=== PATIENT | female | born 1980 | race Caucasian/White ===

== ENCOUNTER 2023-04-03 05:56 | Day surgery (SDC) | payer OTHER ==
[2023-04-03] MEDS ORDERED: Lactated Ringers 1,000 ML IV SCH (06:30)
[2023-04-03 06:47] VITALS: O2SAT 97
[2023-04-03 07:36] LABS: Absolute Neutrophil Ct (ANC) 8.02 x10^3/uL (1.4-6.9); BASOPHIL % 0.7 % (0.0-0.4); Basophil (Absolute #) 0.09 x10^3/uL (0-0.4); Eosinophil % 9.8 % (0.00-5.0); Eosinophil (Absolute #) 1.24 x10^3/uL (0-0.5); Hematocrit 43.8 % (35-47); IMMATURE GRAN # 0.06 x10^3u/L (0.00-0.03); IMMATURE GRAN % 0.5 % (0.00-0.4); Lymphocyte (Absolute #) 2.61 x10^3/uL (1.0-4.6); Lymphocytes % 20.6 % (24.0-44.0); Mean Cell Volume 89.4 fL (78-100); Mean Corpuscular Hemoglobin 30.6 pg (26-32); Mean Corpuscular Hgb Concent. 34.2 g/dL (32-36); Mean Platelet Volume 9.8 fL (7.5-11.0); Monocyte (Absolute #) 0.65 x10^3/uL (0.0-1.3); Monocytes % 5.1 % (0.0-12.0); Neutrophil % 63.3 % (36.0-66.0); Platelet Count 288 x10^3/uL (150-450); White Blood Count 12.7 x10^3/uL (4.0-10.5)
[2023-04-03 08:03] LABS: ALBUMIN 4.2 g/dL (3.5-5.0); ALKALINE PHOSPHATASE 99 U/L (38-126); ANION GAP 15.6 MEQ/L (5-15); BLOOD UREA NITROGEN 14 mg/dL (7-17); CHLORIDE 104 mmol/L (98-107); Calcium 9.1 mg/dL (8.4-10.2); Carbon Dioxide 19 mmol/L (22-30); Creatinine 1 0.96 mg/dL (0.52-1.04); EST GLOMERULAR FILTRATION RATE 76.7 ML/MIN; Glucose 102 mg/dL (74-106); HCG, Quantitative (Inhouse) < 2.39 mIU/ml; MAGNESIUM 2.3 mg/dL (1.6-2.3); Potassium 3.4 mmol/L (3.5-5.1); SGOT/AST 21 U/L (14-36); SGPT/ALT 20 U/L (0-35); SODIUM 135 mmol/L (137-145); Total Protein 7.4 g/dL (6.3-8.2)
[2023-04-03] MEDS ORDERED: Xylocaine-Mpf 2% 5 Ml Vial ONE (08:13)
[2023-04-03] MEDS ORDERED: DIPRIVAN 200 MG/20 ML IV ONE ×2 (08:13→08:14)
[2023-04-03] MEDS ORDERED: Versed 2 MG/2 ML Injection ONE (08:14)
[2023-04-03 10:15] VITALS: TEMP 97.9
[2023-04-03 10:19] VITALS: BP 126/78; PULSE 77; RESP 18
--- NOTE | 2023-04-03 10:43 | OP ---
SURGERY DATE/TIME: 04/03/2023 0854 PREOPERATIVE DIAGNOSES: 1) History of colon polyps. 2) Family history of colon cancer. POSTOPERATIVE DIAGNOSIS: Three distal sigmoid polyps. PROCEDURE: Colonoscopy. SURGEON: Yves Hough M.D. ANESTHESIA: MAC by Billy Paul CRNA. ESTIMATED BLOOD LOSS: Minimal. SPECIMENS: Three hot forceps polypectomies from the distal sigmoid colon. DESCRIPTION OF PROCEDURE: After informed written consent was obtained, the patient was taken to the endoscopy suite. She was placed in left lateral decubitus position and anesthesia was titrated to desired level of consciousness. Digital rectal exam showed external hemorrhoids and no internal lesions. Normal sphincter tone. The scope was inserted into the rectum and sequentially the entire colonic mucosa was traversed. The level of cecum was reached and verified with direct visualization of the ileocecal valve. Prep was noted to be good. There were three sessile polyps in the distal sigmoid colon they were all grasped with forceps, cauterized and removed in its entirety. They were all in close proximity and were sent in one specimen container. None of them were large or suspicious. Prior to withdrawal retroflexion showed no internal lesions. The scope was removed. The patient was transferred to the recovery room in good condition. She will follow up in a week for pathology results.
== END 2023-04-03 10:26 | disposition home or self-care (01) ==
LOC: SDC 05:56
PROVIDERS: ATTEND Family Medicine
DX: Z09 Encounter for follow-up examination after completed treatment for conditions other than malignant neoplasm (principal); Z86.010 Personal history of colon polyps; Z80.0 Family history of malignant neoplasm of digestive organs; K63.5 Polyp of colon; K64.4 Residual hemorrhoidal skin tags
CPT/HCPCS: 80053; 83735; 84702; 85025; J2250; J2704

== ENCOUNTER 2023-04-09 07:11 | Observation (INO) | payer OTHER ==
[2023-04-09] MEDS ORDERED: CEFAZOLIN 2 GM-D5W BAG** 2 GM/50 ML ML IV SCH ×2 (07:30→14:00)
[2023-04-09] MEDS ORDERED: Lactated Ringers 1,000 ML IV SCH (07:30)
[2023-04-09 07:32] LABS: HCG URINE TEST NEGATIVE (NEGATIVE)
[2023-04-09 07:43] LABS: Hematocrit 44.2 % (35-47); Hemoglobin 14.7 g/dL (12.0-16.0); Mean Cell Volume 89.8 fL (78-100); Mean Corpuscular Hemoglobin 29.9 pg (26-32); Mean Corpuscular Hgb Concent. 33.3 g/dL (32-36); Mean Platelet Volume 9.9 fL (7.5-11.0); Platelet Count 295 x10^3/uL (150-450); Red Blood Count 4.92 x10^6/uL (4.1-5.4); Red Cell Distribution Width 12.9 % (11.5-14.0); White Blood Count 11.7 x10^3/uL (4.0-10.5)
[2023-04-09 08:01] LABS: ALBUMIN 4.1 g/dL (3.5-5.0); ANION GAP 11.2 MEQ/L (5-15); BILIRUBIN,TOTAL 0.8 mg/dL (0.2-1.3); Calcium 8.7 mg/dL (8.4-10.2); Creatinine 1 0.66 mg/dL (0.52-1.04); EST GLOMERULAR FILTRATION RATE 113.7 ML/MIN; Potassium 3.4 mmol/L (3.5-5.1); Total Protein 7.3 g/dL (6.3-8.2)
[2023-04-09] MEDS ORDERED: Transderm Scop 1.5MG Patch TOP PRN (08:06)
[2023-04-09] MEDS ORDERED: Transderm Scop 1.5MG Patch ONE (08:10)
[2023-04-09 08:27] LABS: ABO TYPING A; Antibody Screen NEGATIVE (NEGATIVE); RH TYPING POSITIVE
[2023-04-09] MEDS ORDERED: OFIRMEV 100 ML IV ONE (08:47)
[2023-04-09] MEDS ORDERED: Magnesium Sulfate 1 GM/2 ML VIAL ONE (08:47)
[2023-04-09] MEDS ORDERED: Xylocaine-Mpf 2% 5 Ml Vial ONE (08:49)
[2023-04-09] MEDS ORDERED: TORAdol 30 mg Injection ONE (08:49)
[2023-04-09] MEDS ORDERED: Zemuron 100 MG/10 ML ONE ×2 (08:49→09:55)
[2023-04-09] MEDS ORDERED: Decadron 4 MG INJ ONE ×2 (08:49→10:17)
[2023-04-09] MEDS ORDERED: Zofran 4 MG/2 ML VIAL ONE (08:49)
[2023-04-09] MEDS ORDERED: BRIDION 200MG/2ML IV ONE (08:49)
[2023-04-09] MEDS ORDERED: SUBLIMAZE 100 MCG/2 ML ONE ×3 (08:50→11:20)
[2023-04-09] MEDS ORDERED: DIPRIVAN 200 MG/20 ML IV ONE ×5 (08:50→10:07)
[2023-04-09] MEDS ORDERED: Versed 2 MG/2 ML Injection ONE (08:57)
[2023-04-09] MEDS ORDERED: DEXMEDETOMIDINE 80 MCG/20ML-NS IV ONE (09:09)
[2023-04-09] MEDS ORDERED: Naropin 0.5% 30 ML VIAL ONE (10:17)
[2023-04-09] MEDS ORDERED: Hydromorphone 1 mg/ml Injection ONE (10:53)
[2023-04-09 11:17] LABS: Appearance Clear (Clear); Bacteria None Seen /HPF (None Seen); Bilirubin Negative (Negative); Blood Negative (Negative); Epithelial Cells None Seen /HPF (None Seen); Glucose, Urine Negative (Negative); Hyaline Casts NONE SEEN /LPF (0-2); Ketones Negative (Negative); Leukocyte Esterase Negative (Negative); Nitrite Negative (Negative); Ph 7.5 (4.6-8.0); Protein,Urine Dip Negative (Negative); RBC 0-2 /HPF (0-5); Urobilinogen 0.2 mg/dL (0.2); WBC 0-2 /HPF (0-5)
[2023-04-09] MEDS ORDERED: MORPHINE SULFATE 10 MG/ML ONE (11:38)
[2023-04-09] MEDS ORDERED: HYDROMORPHONE 30 MG/30 ML-NS PCA IV PRN (13:05)
[2023-04-09] MEDS ORDERED: Zofran 4 MG/2 ML VIAL IV PRN (13:07)
[2023-04-09] MEDS ORDERED: TORAdol 30 mg Injection IV PRN (13:08)
[2023-04-09] MEDS ORDERED: NORCO 7.5/325 MG TAB PO PRN (13:15)
[2023-04-09] MEDS ORDERED: NON-FORMULARY ITEM (Tirzepatide [Mounjaro] 5 MG/0.5 ML Pen.Injctr) SQ SCH (13:15)
[2023-04-09] MEDS: Lactated Ringers 1,000 ML IV SCH ×2 (13:16→21:48)
[2023-04-09] MEDS ORDERED: MEDICATION INTERVENTION MC SCH ×2 (13:30)
[2023-04-09] MEDS: Reglan 10 MG/2 ML IV SCH ×2 (14:32→21:51)
[2023-04-09] MEDS: Mylicon 80MG PO SCH ×2 (14:32→21:49)
[2023-04-09] MEDS: Docusate Sodium 100 MG PO SCH ×2 (14:32→21:49)
[2023-04-09] MEDS: Aldactone 25 MG PO SCH (17:29)
[2023-04-09] MEDS: CEFAZOLIN 2 GM-D5W BAG** 2 GM/50 ML ML IV SCH (17:32)
[2023-04-09] MEDS ORDERED: APRESOLINE 20 MG/ML INJ IV PRN (17:59)
--- NOTE | 2023-04-09 18:00 | PCM.HP ---
History of Present Illness - Chief Complaint Chief Complaint: abnomal uterine bleeding with failed ablation Date: 04/09/23 History of Present Illness: is a 42 year old female with a pmhx of HTN, KEEGAN, DMII, DDD, OA, and endometriosis patient of Dr. Cummings who is s/p a partial hysterectomy. Patient having hypertensive episodes 190's/ 100's following surgery for which the hospitalist service has been consulted. Endorses pain at her surgical incision site which she rates at 8/10 and nausea with no episodes of vomiting. Denies fever,cough, sob, cp, OLMEDO, dizziness, vision changes, V/D. - Review of Systems Constitutional: No Symptoms Eyes: No Symptoms Ears, Nose, & Throat: No Symptoms Respiratory: No Symptoms Cardiac: No Symptoms Abdominal/Gastrointestinal: No Symptoms Genitourinary Symptoms: No Symptoms Musculoskeletal: No Symptoms Skin: Other (surgical incision) Neurological: No Symptoms Psychological: No Symptoms Endocrine: No Symptoms Hematologic/Lymphatic: No Symptoms Immunological/Allergic: No Symptoms Medications & Allergies Home Medications: Home Medication List Magnesium Oxide 400 mg [Mag-Ox 400] 1 tab PO DAILY 02/04/23 [History Confirmed 04/09/23] NIFEdipine [Nifedipine ER] 1 tab PO DAILY 02/04/23 [History Confirmed 04/09/23] Nebivolol HCl 5 MG [Bystolic 5 MG] 20 mg PO BID 02/04/23 [History Confirmed 04/09/23] Potassium Chloride 1 tab PO BID 02/04/23 [History Confirmed 04/09/23] Tirzepatide [Mounjaro] 7.5 mg SQ WEEKLY 02/04/23 [History Confirmed 04/09/23] Tranexamic Acid 1 tab PO DAILY 02/04/23 [History Confirmed 04/09/23] Hydrocodone/Acetaminophen [Hydrocodone-Acetamin 7.5-325] 1 each PO UD 04/03/23 [History Confirmed 04/09/23] Spironolactone 25 mg PO BID 04/03/23 [History Confirmed 04/09/23] Valsartan 320 mg PO DAILY 04/03/23 [History Confirmed 04/09/23] Allergies/Adverse Reactions: Allergies Allergy/AdvReac Type Severity Reaction Status Date / Time adhesive tape AdvReac Unknown Verified 04/03/23 06:20 - Past Medical History Past Medical History: Yes Neurological History: No Pertinent History ENT History: No Pertinent History Cardiac History: Hypertension Respiratory History: Sleep Apnea Endocrine Medical History: Diabetes Type II Musculoskelatal History: No Pertinent History, Degenerative Disk Disease, Osteoarthritis GI Medical History: No Pertinent History History: No Pertinent History Pyscho-Social History: No Pertinent History Reproductive Disorders: Abnormal Uterine Bleeding, Endometriosis Comment: pre diabetic - Female History Hx Last Menstrual Period: current Are you now?: No - Past Surgical History Past Surgical History: Yes Neuro Surgical History: No Pertinent History Cardiac History: No Pertinent History Respiratory Surgery: No Pertinent History GI Surgical History: Cholecystectomy Genitourinary Surgical Hx: No Pertinent History Musculskeletal Surgical Hx: Orthopedic Surgery Female Surgical History: Dilation & Curettage, Tubal Ligation, Other Other Surgical History: endometriosis surgery, back surgery, bilat knee surgery. right thumb. uterine ablation - Social History Smoking Status: Current every day smoker How long have you smoked: 20 years Exposure to second hand smoke: No Alcohol: None Drug Use: none - Physical Exam Vital Signs: Vital Signs - 24 hr Temp Pulse Resp BP BP Pulse Ox 04/09/23 17:29 16 95 04/09/23 16:09 16 04/09/23 16:00 78 16 174/90 91 L 04/09/23 15:51 97.6 F 78 16 178/89 94 L 04/09/23 14:51 97.5 F 75 16 164/81 94 L 04/09/23 14:21 97.7 F 76 16 195/110 83 L 04/09/23 13:51 97.7 F 76 16 189/109 95 04/09/23 13:29 19 92 L 04/09/23 13:27 77 14 185/105 92 L 04/09/23 13:21 97.4 F 71 16 193/106 92 L 04/09/23 12:51 97.3 F 75 16 185/105 91 L 04/09/23 12:38 69 16 158/91 94 L 04/09/23 12:36 97.1 F 73 16 158/91 95 04/09/23 12:21 97.3 F 75 16 158/91 94 L 04/09/23 12:19 97.5 F 68 16 143/87 94 L 04/09/23 12:11 97.5 F 68 16 153/85 94 L 04/09/23 12:09 97.5 F 68 16 143/87 94 L 04/09/23 08:19 98 F 73 18 153/85 96 04/09/23 07:47 98 F 73 18 153/85 96 04/09/23 07:40 98 F 73 18 153/85 96 General Appearance: no apparent distress Neurologic Exam: alert, oriented x 3, cooperative Eye Exam: PERRL/EOMI Ears, Nose, Throat Exam: normal ENT inspection Neck Exam: normal inspection Respiratory Exam: normal breath sounds, lungs clear Cardiovascular Exam: regular rate/rhythm, normal heart sounds Gastrointestinal/Abdomen Exam: soft, normal bowel sounds, tenderness (at surgical incision) Pelvic Exam: not done Rectal Exam: deferred Extremity Exam: normal inspection Skin Exam: other (surgical incsion) Wound Assessment: Skin/Wound Assessment Wound/Incision Assessment Start: 04/09/23 12:06 Text: Status: Active Freq: Q4H Protocol: Document 04/09/23 16:09 GLENN (Rec: 04/09/23 16:12 GLENN [id number]) Wound/Incision Assessment Abdomen Wound Assessment Shift Assessment Wound Type surgical site Dressing Status Dry & Intact Drainage Amount None Drainage Odor None/Absent General Appearance Clean/Dry Primary Dressing island dressing Secondary Dressing abdominal binder Wound Photo Photo Taken No Results - Labs Lab/Micro Results: Lab Results-Last 24 Hours 04/09/23 04/09/23 04/09/23 Range/Units 07:29 07:34 07:34 WBC 11.7 H (4.0-10.5) x10^3/uL RBC 4.92 (4.1-5.4) x10^6/uL Hgb 14.7 (12.0-16.0) g/dL Hct 44.2 (35-47) % MCV 89.8 (78-100) fL MCH 29.9 (26-32) pg MCHC 33.3 (32-36) g/dL RDW 12.9 (11.5-14.0) % Plt Count 295 (150-450) x10^3/uL MPV 9.9 (7.5-11.0) fL Sodium 138 (137-145) mmol/L Potassium 3.4 L (3.5-5.1) mmol/L Chloride 104 (98-107) mmol/L Carbon Dioxide 26 (22-30) mmol/L Anion Gap 11.2 (5-15) MEQ/L BUN 11 (7-17) mg/dL Creatinine 0.66 (0.52-1.04) mg/dL Estimated GFR 113.7 ML/MIN Glucose 117 H (74-106) mg/dL Calcium 8.7 (8.4-10.2) mg/dL Magnesium (1.6-2.3) mg/dL Total Bilirubin 0.80 (0.2-1.3) mg/dL AST 17 (14-36) U/L ALT 18 (0-35) U/L Alkaline Phosphatase 77 (38-126) U/L Serum Total Protein 7.3 (6.3-8.2) g/dL Albumin 4.1 (3.5-5.0) g/dL Urine Color (Yellow) Urine Appearance (Clear) Urine pH (4.6-8.0) Ur Specific [place] (1.005-1.030) Urine Protein (Negative) Urine Glucose (UA) (Negative) mg/dL Urine Ketones (Negative) Urine Blood (Negative) Urine Nitrite (Negative) Urine Bilirubin (Negative) Urine Urobilinogen (0.2) mg/dL Ur Leukocyte Esterase (Negative) U Hyaline Cast (Auto) (0-2) /LPF Urine Microscopic RBC (0-5) /HPF Urine Microscopic WBC (0-5) /HPF Ur Epithelial Cells (None Seen) /HPF Urine Bacteria (None Seen) /HPF Urine HCG, Qual NEGATIVE (NEGATIVE) ABO Group Rh Factor Antibody Screen (NEGATIVE) 04/09/23 04/09/23 04/09/23 Range/Units 07:34 07:34 08:21 WBC (4.0-10.5) x10^3/uL RBC (4.1-5.4) x10^6/uL Hgb (12.0-16.0) g/dL Hct (35-47) % MCV (78-100) fL MCH (26-32) pg MCHC (32-36) g/dL RDW (11.5-14.0) % Plt Count (150-450) x10^3/uL MPV (7.5-11.0) fL Sodium (137-145) mmol/L Potassium (3.5-5.1) mmol/L Chloride (98-107) mmol/L Carbon Dioxide (22-30) mmol/L Anion Gap (5-15) MEQ/L BUN (7-17) mg/dL Creatinine (0.52-1.04) mg/dL Estimated GFR ML/MIN Glucose (74-106) mg/dL Calcium (8.4-10.2) mg/dL Magnesium 2.1 (1.6-2.3) mg/dL Total Bilirubin (0.2-1.3) mg/dL AST (14-36) U/L ALT (0-35) U/L Alkaline Phosphatase (38-126) U/L Serum Total Protein (6.3-8.2) g/dL Albumin (3.5-5.0) g/dL Urine Color Yellow (Yellow) Urine Appearance Clear (Clear) Urine pH 7.5 (4.6-8.0) Ur Specific [place] 1.020 (1.005-1.030) Urine Protein Negative (Negative) Urine Glucose (UA) Negative (Negative) mg/dL Urine Ketones Negative (Negative) Urine Blood Negative (Negative) Urine Nitrite Negative (Negative) Urine Bilirubin Negative (Negative) Urine Urobilinogen 0.2 (0.2) mg/dL Ur Leukocyte Esterase Negative (Negative) U Hyaline Cast (Auto) NONE SEEN (0-2) /LPF Urine Microscopic RBC 0-2 (0-5) /HPF Urine Microscopic WBC 0-2 (0-5) /HPF Ur Epithelial Cells None Seen (None Seen) /HPF Urine Bacteria None Seen (None Seen) /HPF Urine HCG, Qual (NEGATIVE) ABO Group A Rh Factor POSITIVE Antibody Screen NEGATIVE (NEGATIVE) - Other Procedures and Tests Respiratory Therapy 04/09/23 12:33 Incentive Spirometry TID Assessment/Plan (1) Hypertension Current Visit: Yes Status: Acute Assessment & Plan: -Continue home meds bystolic, nifedipine, valsartan, add hydralazine prn for SBP >180 or DBP >100, most likely pain reaction, will continue to monitor closely Code(s): I10 - ESSENTIAL (PRIMARY) HYPERTENSION (2) History of paroxysmal supraventricular tachycardia Current Visit: Yes Status: Acute Assessment & Plan: -Continue current home medications Code(s): Z86.79 - PERSONAL HISTORY OF OTHER DISEASES OF THE CIRCULATORY SYSTEM (3) Status post partial hysterectomy Current Visit: Yes Status: Acute Assessment & Plan: -medical management per Dr. Cummings -Pain management with [place]/Hydromorphone/ketorolac -Lovenox VTE Code(s): Z90.711 - ACQUIRED ABSENCE OF UTERUS WITH REMAINING CERVICAL STUMP (4) Nausea Current Visit: Yes Status: Acute Assessment & Plan: -Prn zofran Code(s): R11.0 - NAUSEA
[2023-04-09 18:14] LABS: Hematocrit 47.2 % (35-47); Hemoglobin 16.1 g/dL (12.0-16.0); Mean Cell Volume 88.9 fL (78-100); Mean Corpuscular Hemoglobin 30.3 pg (26-32); Mean Corpuscular Hgb Concent. 34.1 g/dL (32-36); Mean Platelet Volume 10.3 fL (7.5-11.0); Platelet Count 322 x10^3/uL (150-450); Red Blood Count 5.31 x10^6/uL (4.1-5.4); Red Cell Distribution Width 12.4 % (11.5-14.0); White Blood Count 18.5 x10^3/uL (4.0-10.5)
[2023-04-09] MEDS: Klor Con PO SCH (21:48)
[2023-04-09] MEDS: Bystolic 5 MG PO SCH (21:48)
[2023-04-10] MEDS: CEFAZOLIN 2 GM-D5W BAG** 2 GM/50 ML ML IV SCH (02:16)
[2023-04-10 04:59] LABS: Hemoglobin 14.1 g/dL (12.0-16.0); Mean Cell Volume 89.5 fL (78-100); Mean Corpuscular Hemoglobin 30.8 pg (26-32); Mean Corpuscular Hgb Concent. 34.4 g/dL (32-36); Mean Platelet Volume 10.8 fL (7.5-11.0); Platelet Count 296 x10^3/uL (150-450); Red Blood Count 4.58 x10^6/uL (4.1-5.4); Red Cell Distribution Width 12.8 % (11.5-14.0); White Blood Count 24.3 x10^3/uL (4.0-10.5)
[2023-04-10 05:16] LABS: ALBUMIN 3.6 g/dL (3.5-5.0); BILIRUBIN,TOTAL 0.7 mg/dL (0.2-1.3); Calcium 8.5 mg/dL (8.4-10.2); Creatinine 1 0.52 mg/dL (0.52-1.04); EST GLOMERULAR FILTRATION RATE 120.4 ML/MIN; Total Protein 6.6 g/dL (6.3-8.2)
[2023-04-10 05:17] LABS: Potassium 3.9 mmol/L (3.5-5.1)
[2023-04-10 05:21] LABS: ANION GAP 11.9 MEQ/L (5-15)
[2023-04-10] MEDS: Mylicon 80MG PO SCH (05:39)
[2023-04-10] MEDS: Reglan 10 MG/2 ML IV SCH (05:39)
[2023-04-10 06:10] VITALS: RESP 16
[2023-04-10] MEDS: Lactated Ringers 1,000 ML IV SCH (06:20)
[2023-04-10 07:52] VITALS: BP 163/77; PULSE 71; TEMP 97.5; O2SAT 97
--- NOTE | 2023-04-10 08:06 | PCM.NOTE ---
Date and Time: 04/10/23802 Subjective Assessment: pod 1 sp abdominal supracervical hysterectomy bl salpingectomy right ovarian cystectomy pt resting in bed and doing well able to ambulate and tolerate diet. vss afebrile abd; soft incision with dressing intact with no soiling ext; no clubbing cyanosis or edema hgb; 14 a/p sp laparotomy supracervical hysterectomy b/l salpingectomy right ovarian cystectomy doing well will dc home today should fu in office next saturday for incision check Objective Exam Wound Assessment: Skin/Wound Assessment Wound/Incision Assessment Start: 04/09/23 12:06 Text: Status: Active Freq: Q4H Protocol: Document 04/10/23 04:00 LB (Rec: 04/10/23 04:25 LB [id number]) Wound/Incision Assessment Abdomen Wound Assessment Shift Assessment Wound Type surgical site Dressing Status Dry & Intact Drainage Amount None Drainage Odor None/Absent General Appearance Clean/Dry Primary Dressing island dressing Secondary Dressing abdominal binder Comment Dressing and binder in place. Wound Photo Photo Taken No OBJECTIVE DATA Vital Signs: Vital Signs - 24 hr Temp Pulse Resp BP BP Pulse Ox 04/10/23 07:51 97.5 F 71 16 163/77 97 04/10/23 05:29 16 96 04/10/23 04:00 98.1 F 75 15 169/90 96 04/10/23 01:29 17 96 04/10/23 00:00 98.3 F 78 17 156/81 96 04/09/23 21:29 24 97 04/09/23 20:00 98.6 F 83 24 176/84 97 04/09/23 17:29 16 95 04/09/23 16:09 16 04/09/23 16:00 78 16 174/90 91 L 04/09/23 15:51 97.6 F 78 16 178/89 94 L 04/09/23 14:51 97.5 F 75 16 164/81 94 L 04/09/23 14:21 97.7 F 76 16 195/110 83 L 04/09/23 13:51 97.7 F 76 16 189/109 95 04/09/23 13:29 19 92 L 04/09/23 13:27 77 14 185/105 92 L 04/09/23 13:21 97.4 F 71 16 193/106 92 L 04/09/23 12:51 97.3 F 75 16 185/105 91 L 04/09/23 12:38 69 16 158/91 94 L 04/09/23 12:36 97.1 F 73 16 158/91 95 04/09/23 12:21 97.3 F 75 16 158/91 94 L 04/09/23 12:19 97.5 F 68 16 143/87 94 L 04/09/23 12:11 97.5 F 68 16 153/85 94 L 04/09/23 12:09 97.5 F 68 16 143/87 94 L 04/09/23 08:19 98 F 73 18 153/85 96 Pain Assessment - Last Documented Pain Intensity [low abdomen] 5 Pain Intensity 4 Intake and Output: Intake & Output 04/07/23 04/08/23 04/09/23 04/10/23 11:59 11:59 11:59 11:59 Intake Total 2803 Output Total 2400 Balance 403 Weight 105.8 kg 105.8 kg Lab Results: Lab Results-Last 24 Hours 04/09/23 04/09/23 04/09/23 Range/Units 07:34 07:34 07:34 WBC (4.0-10.5) x10^3/uL RBC (4.1-5.4) x10^6/uL Hgb (12.0-16.0) g/dL Hct (35-47) % MCV (78-100) fL MCH (26-32) pg MCHC (32-36) g/dL RDW (11.5-14.0) % Plt Count (150-450) x10^3/uL MPV (7.5-11.0) fL Sodium 138 (137-145) mmol/L Potassium 3.4 L (3.5-5.1) mmol/L Chloride 104 (98-107) mmol/L Carbon Dioxide 26 (22-30) mmol/L Anion Gap 11.2 (5-15) MEQ/L BUN 11 (7-17) mg/dL Creatinine 0.66 (0.52-1.04) mg/dL Estimated GFR 113.7 ML/MIN Glucose 117 H (74-106) mg/dL Calcium 8.7 (8.4-10.2) mg/dL Magnesium 2.1 (1.6-2.3) mg/dL Total Bilirubin 0.80 (0.2-1.3) mg/dL AST 17 (14-36) U/L ALT 18 (0-35) U/L Alkaline Phosphatase 77 (38-126) U/L Serum Total Protein 7.3 (6.3-8.2) g/dL Albumin 4.1 (3.5-5.0) g/dL Urine Color (Yellow) Urine Appearance (Clear) Urine pH (4.6-8.0) Ur Specific [place] (1.005-1.030) Urine Protein (Negative) Urine Glucose (UA) (Negative) mg/dL Urine Ketones (Negative) Urine Blood (Negative) Urine Nitrite (Negative) Urine Bilirubin (Negative) Urine Urobilinogen (0.2) mg/dL Ur Leukocyte Esterase (Negative) U Hyaline Cast (Auto) (0-2) /LPF Urine Microscopic RBC (0-5) /HPF Urine Microscopic WBC (0-5) /HPF Ur Epithelial Cells (None Seen) /HPF Urine Bacteria (None Seen) /HPF ABO Group A Rh Factor POSITIVE Antibody Screen NEGATIVE (NEGATIVE) 04/09/23 04/09/23 04/10/23 Range/Units 08:21 18:00 04:50 WBC 18.5 H 24.3 H (4.0-10.5) x10^3/uL RBC 5.31 4.58 (4.1-5.4) x10^6/uL Hgb 16.1 H 14.1 (12.0-16.0) g/dL Hct 47.2 H 41.0 (35-47) % MCV 88.9 89.5 (78-100) fL MCH 30.3 30.8 (26-32) pg MCHC 34.1 34.4 (32-36) g/dL RDW 12.4 12.8 (11.5-14.0) % Plt Count 322 296 (150-450) x10^3/uL MPV 10.3 10.8 (7.5-11.0) fL Sodium (137-145) mmol/L Potassium (3.5-5.1) mmol/L Chloride (98-107) mmol/L Carbon Dioxide (22-30) mmol/L Anion Gap (5-15) MEQ/L BUN (7-17) mg/dL Creatinine (0.52-1.04) mg/dL Estimated GFR ML/MIN Glucose (74-106) mg/dL Calcium (8.4-10.2) mg/dL Magnesium (1.6-2.3) mg/dL Total Bilirubin (0.2-1.3) mg/dL AST (14-36) U/L ALT (0-35) U/L Alkaline Phosphatase (38-126) U/L Serum Total Protein (6.3-8.2) g/dL Albumin (3.5-5.0) g/dL Urine Color Yellow (Yellow) Urine Appearance Clear (Clear) Urine pH 7.5 (4.6-8.0) Ur Specific [place] 1.020 (1.005-1.030) Urine Protein Negative (Negative) Urine Glucose (UA) Negative (Negative) mg/dL Urine Ketones Negative (Negative) Urine Blood Negative (Negative) Urine Nitrite Negative (Negative) Urine Bilirubin Negative (Negative) Urine Urobilinogen 0.2 (0.2) mg/dL Ur Leukocyte Esterase Negative (Negative) U Hyaline Cast (Auto) NONE SEEN (0-2) /LPF Urine Microscopic RBC 0-2 (0-5) /HPF Urine Microscopic WBC 0-2 (0-5) /HPF Ur Epithelial Cells None Seen (None Seen) /HPF Urine Bacteria None Seen (None Seen) /HPF ABO Group Rh Factor Antibody Screen (NEGATIVE) 04/10/23 Range/Units 04:50 WBC (4.0-10.5) x10^3/uL RBC (4.1-5.4) x10^6/uL Hgb (12.0-16.0) g/dL Hct (35-47) % MCV (78-100) fL MCH (26-32) pg MCHC (32-36) g/dL RDW (11.5-14.0) % Plt Count (150-450) x10^3/uL MPV (7.5-11.0) fL Sodium 134 L (137-145) mmol/L Potassium 3.9 (3.5-5.1) mmol/L Chloride 103 (98-107) mmol/L Carbon Dioxide 23 (22-30) mmol/L Anion Gap 11.9 (5-15) MEQ/L BUN 9 (7-17) mg/dL Creatinine 0.52 (0.52-1.04) mg/dL Estimated GFR 120.4 ML/MIN Glucose 112 H (74-106) mg/dL Calcium 8.5 (8.4-10.2) mg/dL Magnesium (1.6-2.3) mg/dL Total Bilirubin 0.70 (0.2-1.3) mg/dL AST 21 (14-36) U/L ALT 25 (0-35) U/L Alkaline Phosphatase 76 (38-126) U/L Serum Total Protein 6.6 (6.3-8.2) g/dL Albumin 3.6 (3.5-5.0) g/dL Urine Color (Yellow) Urine Appearance (Clear) Urine pH (4.6-8.0) Ur Specific [place] (1.005-1.030) Urine Protein (Negative) Urine Glucose (UA) (Negative) mg/dL Urine Ketones (Negative) Urine Blood (Negative) Urine Nitrite (Negative) Urine Bilirubin (Negative) Urine Urobilinogen (0.2) mg/dL Ur Leukocyte Esterase (Negative) U Hyaline Cast (Auto) (0-2) /LPF Urine Microscopic RBC (0-5) /HPF Urine Microscopic WBC (0-5) /HPF Ur Epithelial Cells (None Seen) /HPF Urine Bacteria (None Seen) /HPF ABO Group Rh Factor Antibody Screen (NEGATIVE) Assessment/Plan (1) S/P abdominal supracervical subtotal hysterectomy Current Visit: Yes Status: Acute Code(s): Z90.711 - ACQUIRED ABSENCE OF UTERUS WITH REMAINING CERVICAL STUMP (2) S/P ovarian cystectomy Current Visit: Yes Status: Acute Code(s): Z98.890 - OTHER SPECIFIED POSTPROCEDURAL STATES; Z87.42 - PERSONAL HISTORY OF OTH DISEASES OF THE FEMALE GENITAL TRACT (3) Status post bilateral salpingectomy Current Visit: Yes Status: Acute Code(s): Z90.79 - ACQUIRED ABSENCE OF OTHER GENITAL ORGAN(S) (4) Chronic hypertension Current Visit: Yes Status: Acute Code(s): I10 - ESSENTIAL (PRIMARY) HYPERTENSION
--- NOTE | 2023-04-10 08:12 | PCM.DS ---
Discharge Summary Date of Admission: 04/09/23 07:11 Admitting Physician: NEO ECHOLS DO Primary Care Provider: FLOYD PHILLIPS ALISA Allergies Allergies adhesive tape Adverse Reaction (Unknown, Verified 04/03/23 06:20) "eats at my skin after a long time" Hospital Summary - Hospital Course Hospital Course: pt admitted on apr 09 for undergoing abdominal supracervical hysterectomy b/l salpingectomy right ovarian cystectomy secondary to abnormal uterine bleeding and pelvic pain and was done so without complication. during postop period did well able to ambulate and tolerate diet with stable hgb at 14. pt stable for discharge and will continue home medication and will prescribe pain med of percocet and give antibiotic of clinda bid for 5 days. all questions answered to her satisfaction and was advised to fu in office in 1 wk - Vitals & Intake/Output Vital Signs: Vital Signs Temperature 97.5 F 04/10/23 07:51 Pulse Rate 71 04/10/23 07:51 Respiratory Rate 16 04/10/23 07:51 Blood Pressure 163/77 04/10/23 07:51 O2 Sat by Pulse Oximetry 97 04/10/23 07:51 Intake & Output: Intake & Output 04/07/23 04/08/23 04/09/23 04/10/23 11:59 11:59 11:59 11:59 Intake Total 2803 Output Total 2400 Balance 403 Weight 105.8 kg 105.8 kg - Lab Result Diagrams: 04/10/23 04:50 04/10/23 04:50 Lab Results-Last 24 Hrs: Lab Results-Last 24 Hours 04/09/23 04/09/23 04/09/23 Range/Units 07:34 07:34 07:34 WBC (4.0-10.5) x10^3/uL RBC (4.1-5.4) x10^6/uL Hgb (12.0-16.0) g/dL Hct (35-47) % MCV (78-100) fL MCH (26-32) pg MCHC (32-36) g/dL RDW (11.5-14.0) % Plt Count (150-450) x10^3/uL MPV (7.5-11.0) fL Sodium 138 (137-145) mmol/L Potassium 3.4 L (3.5-5.1) mmol/L Chloride 104 (98-107) mmol/L Carbon Dioxide 26 (22-30) mmol/L Anion Gap 11.2 (5-15) MEQ/L BUN 11 (7-17) mg/dL Creatinine 0.66 (0.52-1.04) mg/dL Estimated GFR 113.7 ML/MIN Glucose 117 H (74-106) mg/dL Calcium 8.7 (8.4-10.2) mg/dL Magnesium 2.1 (1.6-2.3) mg/dL Total Bilirubin 0.80 (0.2-1.3) mg/dL AST 17 (14-36) U/L ALT 18 (0-35) U/L Alkaline Phosphatase 77 (38-126) U/L Serum Total Protein 7.3 (6.3-8.2) g/dL Albumin 4.1 (3.5-5.0) g/dL Urine Color (Yellow) Urine Appearance (Clear) Urine pH (4.6-8.0) Ur Specific [place] (1.005-1.030) Urine Protein (Negative) Urine Glucose (UA) (Negative) mg/dL Urine Ketones (Negative) Urine Blood (Negative) Urine Nitrite (Negative) Urine Bilirubin (Negative) Urine Urobilinogen (0.2) mg/dL Ur Leukocyte Esterase (Negative) U Hyaline Cast (Auto) (0-2) /LPF Urine Microscopic RBC (0-5) /HPF Urine Microscopic WBC (0-5) /HPF Ur Epithelial Cells (None Seen) /HPF Urine Bacteria (None Seen) /HPF ABO Group A Rh Factor POSITIVE Antibody Screen NEGATIVE (NEGATIVE) 04/09/23 04/09/23 04/10/23 Range/Units 08:21 18:00 04:50 WBC 18.5 H 24.3 H (4.0-10.5) x10^3/uL RBC 5.31 4.58 (4.1-5.4) x10^6/uL Hgb 16.1 H 14.1 (12.0-16.0) g/dL Hct 47.2 H 41.0 (35-47) % MCV 88.9 89.5 (78-100) fL MCH 30.3 30.8 (26-32) pg MCHC 34.1 34.4 (32-36) g/dL RDW 12.4 12.8 (11.5-14.0) % Plt Count 322 296 (150-450) x10^3/uL MPV 10.3 10.8 (7.5-11.0) fL Sodium (137-145) mmol/L Potassium (3.5-5.1) mmol/L Chloride (98-107) mmol/L Carbon Dioxide (22-30) mmol/L Anion Gap (5-15) MEQ/L BUN (7-17) mg/dL Creatinine (0.52-1.04) mg/dL Estimated GFR ML/MIN Glucose (74-106) mg/dL Calcium (8.4-10.2) mg/dL Magnesium (1.6-2.3) mg/dL Total Bilirubin (0.2-1.3) mg/dL AST (14-36) U/L ALT (0-35) U/L Alkaline Phosphatase (38-126) U/L Serum Total Protein (6.3-8.2) g/dL Albumin (3.5-5.0) g/dL Urine Color Yellow (Yellow) Urine Appearance Clear (Clear) Urine pH 7.5 (4.6-8.0) Ur Specific [place] 1.020 (1.005-1.030) Urine Protein Negative (Negative) Urine Glucose (UA) Negative (Negative) mg/dL Urine Ketones Negative (Negative) Urine Blood Negative (Negative) Urine Nitrite Negative (Negative) Urine Bilirubin Negative (Negative) Urine Urobilinogen 0.2 (0.2) mg/dL Ur Leukocyte Esterase Negative (Negative) U Hyaline Cast (Auto) NONE SEEN (0-2) /LPF Urine Microscopic RBC 0-2 (0-5) /HPF Urine Microscopic WBC 0-2 (0-5) /HPF Ur Epithelial Cells None Seen (None Seen) /HPF Urine Bacteria None Seen (None Seen) /HPF ABO Group Rh Factor Antibody Screen (NEGATIVE) 04/10/23 Range/Units 04:50 WBC (4.0-10.5) x10^3/uL RBC (4.1-5.4) x10^6/uL Hgb (12.0-16.0) g/dL Hct (35-47) % MCV (78-100) fL MCH (26-32) pg MCHC (32-36) g/dL RDW (11.5-14.0) % Plt Count (150-450) x10^3/uL MPV (7.5-11.0) fL Sodium 134 L (137-145) mmol/L Potassium 3.9 (3.5-5.1) mmol/L Chloride 103 (98-107) mmol/L Carbon Dioxide 23 (22-30) mmol/L Anion Gap 11.9 (5-15) MEQ/L BUN 9 (7-17) mg/dL Creatinine 0.52 (0.52-1.04) mg/dL Estimated GFR 120.4 ML/MIN Glucose 112 H (74-106) mg/dL Calcium 8.5 (8.4-10.2) mg/dL Magnesium (1.6-2.3) mg/dL Total Bilirubin 0.70 (0.2-1.3) mg/dL AST 21 (14-36) U/L ALT 25 (0-35) U/L Alkaline Phosphatase 76 (38-126) U/L Serum Total Protein 6.6 (6.3-8.2) g/dL Albumin 3.6 (3.5-5.0) g/dL Urine Color (Yellow) Urine Appearance (Clear) Urine pH (4.6-8.0) Ur Specific [place] (1.005-1.030) Urine Protein (Negative) Urine Glucose (UA) (Negative) mg/dL Urine Ketones (Negative) Urine Blood (Negative) Urine Nitrite (Negative) Urine Bilirubin (Negative) Urine Urobilinogen (0.2) mg/dL Ur Leukocyte Esterase (Negative) U Hyaline Cast (Auto) (0-2) /LPF Urine Microscopic RBC (0-5) /HPF Urine Microscopic WBC (0-5) /HPF Ur Epithelial Cells (None Seen) /HPF Urine Bacteria (None Seen) /HPF ABO Group Rh Factor Antibody Screen (NEGATIVE) Micro Results-Entire Visit: Microbiology 04/09/23 08:21 Urine Culture - Preliminary Catherized NO GROWTH TO DATE - Procedures and Test Procedures and Tests throughout Hospitalization: Therapy Orders & Screens 04/09/23 07:27 EKG STAT Comment: 04/09/23 12:23 Smoking Cessation Education ONCE Comment: Diagnosis: abnomal uterine bleeding with failed ablation Smoking Status: Current every day smoker How long have you smoked: 20 years Have you smoked in the past 12 months: Yes Approximately how many cigarettes per day: 1ppd If,Former Smoker,when did you quit: 4-5 yrs ago 04/09/23 12:33 Incentive Spirometry TID Comment: Diagnosis: abnomal uterine bleeding with failed ablation Discharge Exam Wound Assessment: Skin/Wound Assessment Wound/Incision Assessment Start: 04/09/23 12:06 Text: Status: Active Freq: Q4H Protocol: Document 04/10/23 04:00 LB (Rec: 04/10/23 04:25 LB [id number]) Wound/Incision Assessment Abdomen Wound Assessment Shift Assessment Wound Type surgical site Dressing Status Dry & Intact Drainage Amount None Drainage Odor None/Absent General Appearance Clean/Dry Primary Dressing island dressing Secondary Dressing abdominal binder Comment Dressing and binder in place. Wound Photo Photo Taken No Final Diagnosis/Problem List - Final Discharge Diagnosis/Problem (1) S/P abdominal supracervical subtotal hysterectomy Current Visit: Yes Status: Acute Code(s): Z90.711 - ACQUIRED ABSENCE OF UTERUS WITH REMAINING CERVICAL STUMP (2) S/P ovarian cystectomy Current Visit: Yes Status: Acute Code(s): Z98.890 - OTHER SPECIFIED POSTPROCEDURAL STATES; Z87.42 - PERSONAL HISTORY OF OTH DISEASES OF THE FEMALE GENITAL TRACT (3) Status post bilateral salpingectomy Current Visit: Yes Status: Acute Code(s): Z90.79 - ACQUIRED ABSENCE OF OTHER GENITAL ORGAN(S) (4) Chronic hypertension Current Visit: Yes Status: Acute Code(s): I10 - ESSENTIAL (PRIMARY) HYP ERTENSION - Discharge Disposition: Home, Self-Care Condition: Stable Prescriptions: New clindamycin HCL [Clindamycin HCl] 300 mg PO BID #10 cap Hydrocodone/Acetaminophen [Hydrocodone-Acetamin 7.5-325] 1 each PO Q6H PRN PRN 7 Days #28 tablet MDD 4 PRN Reason: Moderate To Severe Pain No Action Tranexamic Acid 1 tab PO DAILY Potassium Chloride 1 tab PO BID Magnesium Oxide 400 mg [Mag-Ox 400] 1 tab PO DAILY Nebivolol HCl 5 MG [Bystolic 5 MG] 20 mg PO BID NIFEdipine [Nifedipine ER] 1 tab PO DAILY Tirzepatide [Mounjaro] 7.5 mg SQ WEEKLY Spironolactone 25 mg PO BID Valsartan 320 mg PO DAILY Hydrocodone/Acetaminophen [Hydrocodone-Acetamin 7.5-325] 1 each PO UD Follow up with: FLOYD PHILLIPS MD [Primary Care Provider] - NEO ECHOLS DO [ACTIVE STAFF] - 04/16/23
[2023-04-10] MEDS ORDERED: ENOXAPARIN SODIUM SQ SCH (09:00)
[2023-04-10] MEDS: Docusate Sodium 100 MG PO SCH (09:04)
[2023-04-10] MEDS: Aldactone 25 MG PO SCH (09:04)
[2023-04-10] MEDS: Klor Con PO SCH (09:04)
[2023-04-10] MEDS: Bystolic 5 MG PO SCH (09:05)
--- NOTE | 2023-04-10 09:43 | OP ---
SURGERY DATE/TIME: 04/09/2023 0904 PREOPERATIVE DIAGNOSIS: Abnormal uterine bleeding with failed ablation. POSTOPERATIVE DIAGNOSIS: Abnormal uterine bleeding with failed ablation with right ovarian simple cyst. PROCEDURES: 1) Laparoscopic supracervical hysterectomy. 2) Bilateral salpingectomy. 3) Right ovarian cystectomy. SURGEON: Mookie Cummings D.O. OPHTHALMIC ASST: Rosenda Juares surgical elastic knitter hand frame. ANESTHESIA: General. ESTIMATED BLOOD LOSS: 50 cc. COMPLICATIONS: None. INDICATIONS: The risks, benefits, indications and alternatives of the procedure were reviewed with the patient prior to the procedure. The patient understood the risk of infection, bleeding, bowel injury, bladder injury, ureteral injury, pelvic infection and thromboembolic disorder associated with the surgery and desires to have the surgery as a possible means to alleviate her current medical condition. DESCRIPTION OF PROCEDURE AND FINDINGS: At this point the patient is taken to the operating room where she was placed in the supine position, given general anesthesia, prepared and draped in the usual sterile fashion. A Pfannenstiel incision was made approximately 2 cm above the symphysis pubis and extended sharply to the rectus fascia. The fascia was then incised bilaterally with curved Hart scissors and the muscles of the anterior abdominal wall were in the midline by sharp and blunt dissection. The peritoneum was then grasped between two pickups elevated and entered sharply with Metzenbaum scissors. The pelvis is then examined and noted to be approximately 10 week size uterus. An O'Tristin-O'Arreola retractor was placed into the incision and the bowel is packed away with moist laparotomy sponges. At this point a tenaculum is placed on the fundus of the uterus and was used to elevate the uterus. There appeared to be a right ovarian cyst approximately 2 x 2 cm in dimension where at this point the LigaSure was placed on the surface of the ovary where it was clamped, coagulated and cut and the cyst was removed in its entirety without spillage. The bilateral ovaries appear to be within normal limits with no gross abnormalities that were noted after removing the cyst. From this point the LigaSure was then placed on the left utero-ovarian ligament where it was clamped, coagulated and cut and taken down to the round ligament, taken down to the uterine vasculature were it was skeletonized and a bladder flap developed on its side. The same procedure was performed on the right side where the right utero-ovarian ligament was clamped, coagulated and cut, taken down to the round ligament towards the uterine vasculature and it too was skeletonized on its side and a bladder flap developed on its side. From this point, the uterine arteries on both sides were clamped with Brenna clamp, transected and suture ligated with 0 Vicryl suture. Again, hemostasis was assured. From this point the uterus was elevated and the uterus was amputated with two bipolar instruments and was removed without complication with minimal bleeding that was noted. The cervical stump was closed with a continuous stitch of 0 Vicryl suture. From this point the pelvis is then irrigated copiously with warm normal saline. From this point, all operative sponges and instruments were removed from the patient's abdomen. The muscles in the peritoneum were closed with interrupted 2-0 chromic suture. The fascia was closed with a running 0 Vicryl suture and hemostasis was assured. The subcutaneous layer was closed with 3-0 Vicryl suture and the skin was closed with absorbable hailey called INSORB. Sponge, lap, needle and instruments counts were correct x2. The patient was then taken to the recovery room in stable condition.
[2023-04-10] MEDS ORDERED: DIOVAN 80 MG PO SCH (10:00)
[2023-04-10] MEDS ORDERED: Adalat CC 30 MG TABLET PO SCH (10:00)
[2023-04-10] MEDS ORDERED: TRANEXAMIC ACID 650 MG PO SCH (10:00)
[2023-04-10] MEDS ORDERED: MAG-OX 400 PO SCH (10:00)
== END 2023-04-10 10:28 | disposition home or self-care (01) ==
LOC: MED SURG 07:11 → INTOOBSV 07:11 → EDSTATUS 14:32
PROVIDERS: ADMIT Obstetrics & Gynecology; ATTEND Obstetrics & Gynecology
DX: N93.9 Abnormal uterine and vaginal bleeding, unspecified (principal); N83.201 Unspecified ovarian cyst, right side; I10 Essential (primary) hypertension; E11.9 Type 2 diabetes mellitus without complications; N80.9 Endometriosis, unspecified; R11.0 Nausea; F17.200 Nicotine dependence, unspecified, uncomplicated; Z79.899 Other long term (current) drug therapy; Z20.828 Contact with and (suspected) exposure to other viral communicable diseases; Z86.79 Personal history of other diseases of the circulatory system
CPT/HCPCS: 36415; 58542; 58925; 64488; 76937; 80053; 81001; 81025; 83735; 85027; 86850; 86900; 86901; 87086; 93005; 93268; G0378; 76942; J0690; J1100; J1170; J1650; J1885; J2250; J2270; J2405; J2704; J2795; J3010; J3475; L0625; A9270-GY